=== PATIENT | male | born 1965 ===

== ENCOUNTER 2017-01-27 10:32 | Emergency (ER) | payer SELFPAY ==
--- NOTE | 2017-01-27 12:14 | UC ---
General HPI - HPI Summary HPI Summary: IS FROM [place]; WORKS IN [place] DURING SUMMER MONTHS [employer]. RAN OUT OF LISINOPRIL AND XANAX. ANGEL BACK TO [place] IN . - History of Current Complaint Chief Complaint: UCGeneralIllness Stated Complaint: MED REFILL Time Seen by Provider: 01/27/17 11:21 Hx Obtained From: Patient Onset/Duration: Gradual Onset, Lasting Days, Still Present Onset Severity: Mild Current Severity: Mild Pain Intensity: 0 Associated Signs & Symptoms: Positive: Other - ANXIETY HTN - Allergy/Home Medications Allergies/Adverse Reactions: Allergies Allergy/AdvReac Type Severity Reaction Status Date / Time Aspirin [ASA] Allergy Rash Verified 01/27/17 10:38 Penicillins [PCN] Allergy Rash Verified 01/27/17 10:39 Home Medications: Home Medications ALPRAZolam TAB* [Xanax TAB*] 1 mg PO DAILY 01/27/17 [History Confirmed 01/27/17] Lisinopril/HCTZ 20/12.5(NF) 1 tab PO DAILY 01/27/17 [History Confirmed 01/27/17] PMH/Surg Hx/FS Hx/Imm Hx Previously Healthy: Yes - Surgical History Surgical History: None - Family History Known Family History: Positive: Hypertension - Social History Occupation: Employed Full-time Lives: With Family Alcohol Use: None Substance Use Type: None Smoking Status (MU): Current Some Day Smoker Review of Systems Constitutional: Negative Skin: Negative Eyes: Negative ENT: Negative Respiratory: Negative Cardiovascular: Negative Gastrointestinal: Negative Genitourinary: Negative Motor: Negative Neurovascular: Negative Musculoskeletal: Negative Neurological: Negative Psychological: Negative All Other Systems Reviewed And Are Negative: Yes Physical Exam Triage Information Reviewed: Yes Appearance: Well-Appearing, No Pain Distress, Well-Nourished Vital Signs: Initial Vital Signs Temp 98 F 01/27/17 10:42 Pulse 81 01/27/17 10:42 Resp 16 01/27/17 10:42 BP 131/93 01/27/17 10:42 Pulse Ox 98 01/27/17 10:42 Vital Signs Reviewed: Yes Eye Exam: Normal ENT Exam: Normal ENT: Positive: Normal ENT inspection, Hearing grossly normal, TMs normal Dental Exam: Normal Neck exam: Normal Neck: Positive: Supple, Nontender, No Lymphadenopathy Respiratory Exam: Normal Respiratory: Positive: Chest non-tender, Lungs clear, Normal breath sounds, No respiratory distress, No accessory muscle use Cardiovascular Exam: Normal Cardiovascular: Positive: RRR, No Murmur, Pulses Normal Abdominal Exam: Normal Musculoskeletal Exam: Normal Musculoskeletal: Positive: Strength Intact, ROM Intact Neurological Exam: Normal Psychological Exam: Normal Skin Exam: Normal Course/Dx - Differential Dx - Multi-Symptom Differential Diagnoses: Other Provider Diagnoses: HTN; ANXIETY; MEDICATION REFILL Discharge - Discharge Plan Condition: Stable Disposition: HOME Prescriptions: Alprazolam [Xanax] 1 mg PO TID PRN #15 tab MDD three tabs PRN Reason: Anxiety Lisinopril/HCTZ 20/12.5(NF) [Zestoretic 20/12.5(NF)] 1 tab PO DAILY #30 tab Patient Education Materials: Chronic Hypertension (ED), Anxiety (ED), Medicine Refill (ED) Referrals: [facility] [place] [facility]FERR[facility] [Outside] No Primary Care Phys,NOPCP [Primary Care Provider] -
== END 2017-01-27 11:48 | disposition home or self-care (01) ==
LOC: UCEAST 10:32
DX: F41.9 Anxiety disorder, unspecified (principal); I10 Essential (primary) hypertension; F17.200 Nicotine dependence, unspecified, uncomplicated
CPT/HCPCS: 99202; G0463